=== PATIENT | female | born 1965 | race Caucasian/White ===

== ENCOUNTER 2017-05-21 18:34 | Emergency (ER) | payer BC ==
[~2017-05-21] VITALS: Ht 167.6 cm; Wt 103.4 kg
[~2017-05-21 18:34] MED LIST: DIGESTIVE ENZY1 EAC3; LEVOTHYROXIN0.075 MG; MINIPRESS5 MG; PERCOCET 5-3251 EACH PO; PROTONIX40 M1
[2017-05-21 21:13] LABS: ABSOLUTE BASOPHILS 0.1 thou/uL (0.0-0.2); ABSOLUTE EOSINOPHILS 0.3 thou/uL (0.0-0.7); ABSOLUTE MONOCYTES 0.5 thou/uL (0.0-1.2); ABSOLUTE NEUTROPHILS 4.2 thou/uL (1.6-8.1); BASOPHILS 1.4 %; EOSINOPHILS 4.2 %; HEMATOCRIT 38.2 % (37.0-47.0); HEMOGLOBIN 13.1 gm/dL (12.0-15.0); LYMPHOCYTES 36.4 %; MCH 29.7 pg (26.0-34.0); MCHC 34.2 g/dL (28.0-37.0); MCV 86.8 fL (80.0-100.0); MONOCYTES 6.1 %; MPV 10.1 fl. (7.2-11.1); NUCLEATED RBCS 0 /100WBC; PLATELET COUNT* 160 thou/uL (150-400); POLYS 51.9 %; RDW-CV 13.6 % (10.5-14.5); WBC 8.2 thou/uL (4.0-11.0)
[2017-05-21 21:27] LABS: CALCIUM 8.7 mg/dL (8.5-10.1); CREATININE 0.9 mg/dL (0.6-1.3); POTASSIUM 3.9 mmol/L (3.5-5.1)
[2017-05-21 21:31] LABS: ALBUMIN 3.5 g/dL (3.4-5.0); TOTAL BILIRUBIN 0.3 mg/dL (<0.1-1.0); TOTAL PROTEIN 7.5 g/dL (6.4-8.2)
[2017-05-21] MEDS ORDERED: ZOFRAN4 MG PO (23:11)
[2017-05-21] MEDS ORDERED: PERCOCET 5-3251 EACH PO (23:11)
[2017-05-21 23:21] VITALS: BP 139/70
== END 2017-05-21 23:21 | disposition home or self-care (01) ==
LOC: M.ERS 18:34
PROVIDERS: Emergency Medicine
DX: R10.11 Right upper quadrant pain (principal); F10.99 Alcohol use, unspecified with unspecified alcohol-induced disorder; Z90.711 Acquired absence of uterus with remaining cervical stump; Z98.890 Other specified postprocedural states; Z87.891 Personal history of nicotine dependence; Z88.6 Allergy status to analgesic agent; Z88.5 Allergy status to narcotic agent